=== PATIENT | male | born 1995 | race Caucasian/White ===

== ENCOUNTER 2017-05-17 16:52 | Emergency (ER) | payer OTHER, MEDICAID ==
[~2017-05-17] VITALS: Ht 165.1 cm; Wt 93.9 kg
[~2017-05-17 16:52] MED LIST: ADVAIR 100-501 EACH INH; FLONASE 0.05%50 MCG NASAL; INTUNIV2 MG PO; LETROZOLE2.5 MG PO; MEDROLDOSEPACK PO; OXCARBAZEPINE600 MG PO; PROMETH-CODEIN 65 ML PO; VENTOLIN HFA 1818 GM INH; ZPAK PO
[2017-05-17 17:32] LABS: URINE BILIRUBIN NEGATIVE (Negative); URINE BLOOD NEGATIVE (Negative); URINE CLARITY CLEAR; URINE COLOR YELLOW; URINE GLUCOSE-RANDOM NEGATIVE (Negative); URINE KETONES NEGATIVE (Negative); URINE LEUKOCYTES NEGATIVE (Negative); URINE NITRITE NEGATIVE (Negative); URINE PROTEIN NEGATIVE (Negative)
[2017-05-17 17:41] LABS: AMP/METHAMP Negative (Negative); BARBITURATES Negative (Negative); BENZODIAZEPINES Negative (Negative); COCAINE Negative (Negative); METHADONE Negative (Negative); OPIATES Negative (Negative); PCP Negative (Negative); THC POSITIVE (Negative)
[2017-05-17] MEDS ORDERED: ROBAXIN 750 MG750 M1 PO (17:52)
[2017-05-17] MEDS ORDERED: TORADOL 10 MG T10 MG PO (17:52)
[2017-05-17] MEDS ORDERED: TYLENOL EXTRA500 MG PO (17:52)
[2017-05-17 18:26] VITALS: BP 135/87
== END 2017-05-17 18:27 | disposition home or self-care (01) ==
LOC: M.ERS 16:52
PROVIDERS: Physician Assistant
DX: M54.6 Pain in thoracic spine (principal); I48.91 Unspecified atrial fibrillation

== ENCOUNTER → 2017-10-17 | Outpatient (CLI) | payer OTHER ==
[~2017-10-17] MED LIST changes: +CHOLESTEROL PO; +ROBAXIN 750 MG750 M1 PO; +TORADOL 10 MG T10 MG PO; +TYLENOL EXTRA500 MG PO; +XARELTO20 MG PO
== END ==
LOC: M.ULTRA 16:00
DX: I82.4Z1 Acute embolism and thrombosis of unspecified deep veins of right distal lower extremity (principal)

== ENCOUNTER → 2017-11-21 | Outpatient (CLI) | payer OTHER | LOC: M.ULTRA 13:55 | DX: D68.61 Antiphospholipid syndrome (principal); M79.661 Pain in right lower leg ==

== ENCOUNTER 2018-01-27 09:23 | Emergency (ER) | payer OTHER ==
[~2018-01-27] VITALS: Ht 165.1 cm; Wt 96.4 kg
[~2018-01-27 09:23] MED LIST changes: -CHOLESTEROL PO; -XARELTO20 MG PO
[2018-01-27] MEDS ORDERED: XARELTO20 MG PO (09:30)
[2018-01-27] MEDS ORDERED: CHOLESTEROL PO (09:31)
[2018-01-27 09:54] LABS: ABSOLUTE BASOPHILS 0.1 thou/uL (0.0-0.2); ABSOLUTE EOSINOPHILS 0.4 thou/uL (0.0-0.7); ABSOLUTE LYMPHOCYTES 1.7 thou/uL (0.8-5.3); ABSOLUTE MONOCYTES 0.7 thou/uL (0.0-1.2); ABSOLUTE NEUTROPHILS 4.3 thou/uL (1.6-8.1); BASOPHILS 0.8 %; EOSINOPHILS 5.2 %; HEMATOCRIT 46.4 % (42.0-52.0); HEMOGLOBIN 15.8 gm/dL (14.0-18.0); LYMPHOCYTES 23.5 %; MCH 29.1 pg (26.0-34.0); MCV 85.7 fL (80.0-100.0); MPV 7.2 fl. (7.2-11.1); NUCLEATED RBCS 0 /100WBC; PLATELET COUNT* 228 thou/uL (150-400); POLYS 60.5 %; RBC 5.41 mil/uL (4.50-6.00); RDW-CV 12.9 % (10.5-14.5); WBC 7.1 thou/uL (4.0-11.0)
[2018-01-27 09:55] LABS: CALCIUM 8.7 mg/dL (8.5-10.1); CREATININE 1.1 mg/dL (0.6-1.3); POTASSIUM 3.6 mmol/L (3.5-5.1)
[2018-01-27 09:57] LABS: APTT 42.9 Seconds (25.0-31.3); INR 1.6; PROTIME 16.8 Seconds (9.20-11.50)
[2018-01-27 10:00] LABS: ALBUMIN 4.2 g/dL (3.4-5.0)
[2018-01-27 10:06] LABS: URINE BILIRUBIN NEGATIVE (Negative); URINE BLOOD NEGATIVE (Negative); URINE CLARITY CLEAR; URINE COLOR YELLOW; URINE GLUCOSE-RANDOM NEGATIVE (Negative); URINE KETONES TRACE (Negative); URINE LEUKOCYTES-REFLEX TRACE (Negative); URINE NITRITE-REFLEX NEGATIVE (Negative); URINE PROTEIN NEGATIVE (Negative); URINE SPECIFIC GRAVITY 1.025 (1.005-1.030); URINE UROBILINOGEN 0.2 E.U./dl (0.2-1.0)
[2018-01-27 10:14] LABS: AMP/METHAMP POSITIVE (Negative); BARBITURATES Negative (Negative); BENZODIAZEPINES Negative (Negative); COCAINE Negative (Negative); METHADONE Negative (Negative); OPIATES Negative (Negative); PCP Negative (Negative); THC Negative (Negative)
[2018-01-27 10:18] LABS: ACETAMINOPHEN < 2 ug/mL (10-30); ALCOHOL < 10 mg/dL (<10); SALICYLATE < 2.8 mg/dL (2.8-20.0)
[2018-01-27 10:29] LABS: BE 0 mmol/L (-2 to +3); HCO3 23.8 mmol/L (22.0-26.0); PCO2 36.2 mmHg (35.0-45.0); PO2 95.5 mmHg (75.0-100.0); pH 7.435 (7.340-7.450)
--- NOTE | 2018-01-27 18:00 | EKG ---
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
[2018-01-28 10:49] LABS: SQUAMOUS 4-10 Moderate /LPF (0-3)
[2018-01-28 10:50] LABS: URINE RBC 0-2 Rare /HPF (0-2); URINE WBC-REFLEX 0-5 Rare /HPF (0-5)
[2018-01-28 10:51] LABS: CASTS None Seen /LPF (None Seen); MUCUS 0-3 Light strn/LPF (None Seen)
[2018-01-28 10:52] LABS: CRYSTALS None Seen /LPF (None Seen)
[2018-01-29 13:35] VITALS: BP 166/75
== END 2018-01-29 13:38 | disposition home or self-care (01) ==
LOC: M.ERS 09:23
PROVIDERS: Emergency Medicine
DX: T39.312A Poisoning by propionic acid derivatives, intentional self-harm, initial encounter (principal); T45.512A Poisoning by anticoagulants, intentional self-harm, initial encounter; T39.012A Poisoning by aspirin, intentional self-harm, initial encounter; F32.9 Major depressive disorder, single episode, unspecified; I48.91 Unspecified atrial fibrillation; Y92.89 Other specified places as the place of occurrence of the external cause

== ENCOUNTER 2018-05-01 16:56 | Emergency (ER) | payer OTHER ==
[~2018-05-01] VITALS: Ht 160 cm; Wt 104.3 kg
[~2018-05-01 16:56] MED LIST changes: +CHOLESTEROL PO; +XARELTO20 MG PO
[2018-05-01 17:30] LABS: ABSOLUTE BASOPHILS 0.1 thou/uL (0.0-0.2); ABSOLUTE LYMPHOCYTES 2.3 thou/uL (0.8-5.3); ABSOLUTE MONOCYTES 0.6 thou/uL (0.0-1.2); ABSOLUTE NEUTROPHILS 8.3 thou/uL (1.6-8.1); BASOPHILS 0.6 %; EOSINOPHILS 0.3 %; HEMATOCRIT 49.8 % (42.0-52.0); HEMOGLOBIN 16.7 gm/dL (14.0-18.0); LYMPHOCYTES 20.2 %; MCH 28.6 pg (26.0-34.0); MCHC 33.5 g/dL (28.0-37.0); MCV 85.4 fL (80.0-100.0); MONOCYTES 5.6 %; MPV 7.1 fl. (7.2-11.1); NUCLEATED RBCS 0 /100WBC; PLATELET COUNT* 286 thou/uL (150-400); POLYS 73.3 %; RBC 5.83 mil/uL (4.50-6.00); WBC 11.4 thou/uL (4.0-11.0)
[2018-05-01 17:39] LABS: ANION GAP 9 mmol/L (7-16); BUN 14 mg/dL (7-18); CALCIUM 9.7 mg/dL (8.5-10.1); CHLORIDE 104 mmol/L (98-107); CO2 28 mmol/L (21-32); GLUCOSE 109 mg/dL (70-99); POTASSIUM 3.8 mmol/L (3.5-5.1); SODIUM 141 mmol/L (136-145)
[2018-05-01 17:51] LABS: ALBUMIN 4.3 g/dL (3.4-5.0); ALKALINE PHOSPHATASE 61 U/L (46-116); LIPASE 131 U/L (73-393); NT-PRO BRAIN NAT PEPTIDE 8 pg/mL (<300); SGOT 29 U/L (15-37); SGPT 64 U/L (30-65); TOTAL BILIRUBIN 0.6 mg/dL (<0.1-1.0); TOTAL PROTEIN 7.8 g/dL (6.4-8.2); TROPONIN-I LEVEL <0.06 ng/mL (<0.06)
[2018-05-01 18:10] LABS: URINE BILIRUBIN NEGATIVE (Negative); URINE BLOOD NEGATIVE (Negative); URINE CLARITY CLEAR; URINE COLOR YELLOW; URINE GLUCOSE-RANDOM NEGATIVE (Negative); URINE KETONES NEGATIVE (Negative); URINE LEUKOCYTES-REFLEX NEGATIVE (Negative); URINE NITRITE-REFLEX NEGATIVE (Negative); URINE PROTEIN NEGATIVE (Negative); URINE SPECIFIC GRAVITY 1.025 (1.005-1.030)
[2018-05-01 18:26] LABS: AMP/METHAMP Negative (Negative); BARBITURATES Negative (Negative); BENZODIAZEPINES Negative (Negative); COCAINE Negative (Negative); METHADONE Negative (Negative); OPIATES Negative (Negative); PCP Negative (Negative); THC POSITIVE (Negative)
[2018-05-01] MEDS ORDERED: NABUMETONE 750750 M1 PO (19:09)
[2018-05-01 19:25] VITALS: BP 109/67
--- NOTE | 2018-05-02 14:55 | EKG ---
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
== END 2018-05-01 19:25 | disposition home or self-care (01) ==
LOC: M.ERS 16:56
PROVIDERS: Nurse Practitioner Family
DX: R07.89 Other chest pain (principal); R06.00 Dyspnea, unspecified; I48.91 Unspecified atrial fibrillation; F17.210 Nicotine dependence, cigarettes, uncomplicated; Z86.718 Personal history of other venous thrombosis and embolism; Z79.899 Other long term (current) drug therapy

== ENCOUNTER 2019-10-18 15:08 | Emergency (ER) | payer OTHER ==
[~2019-10-18] VITALS: Ht 165.1 cm; Wt 93.0 kg
[~2019-10-18 15:08] MED LIST changes: +NABUMETONE 750750 M1 PO
[2019-10-18] MEDS ORDERED: ABILIFY 5 MG TAB5 M1 PO (15:22)
[2019-10-18 15:44] LABS: HEMATOCRIT 43.5 % (42.0-52.0); HEMOGLOBIN 15.1 gm/dL (14.0-18.0); MCH 29.6 pg (26.0-34.0); MCHC 34.8 g/dL (28.0-37.0); MCV 85.1 fL (80.0-100.0); MPV 7.2 fl. (7.2-11.1); RBC 5.11 mil/uL (4.50-6.00); RDW-CV 13.1 % (10.5-14.5); WBC 6.4 thou/uL (4.0-11.0)
[2019-10-18 15:52] LABS: CALCIUM 8.4 mg/dL (8.5-10.1); CREATININE 1.1 mg/dL (0.6-1.3); POTASSIUM 3.4 mmol/L (3.5-5.1)
[2019-10-18 15:55] LABS: URINE BILIRUBIN NEGATIVE (Negative); URINE BLOOD NEGATIVE (Negative); URINE CLARITY CLEAR; URINE COLOR YELLOW; URINE GLUCOSE-RANDOM NEGATIVE (Negative); URINE KETONES TRACE (Negative); URINE LEUKOCYTES NEGATIVE (Negative); URINE NITRITE NEGATIVE (Negative); URINE PROTEIN NEGATIVE (Negative); URINE UROBILINOGEN 0.2 E.U./dl (0.2-1.0)
[2019-10-18 16:02] LABS: TOTAL BILIRUBIN 0.3 mg/dL (<0.1-1.0); TOTAL PROTEIN 7.3 g/dL (6.4-8.2)
[2019-10-18 16:04] LABS: AMP/METHAMP Negative (Negative); BARBITURATES Negative (Negative); BENZODIAZEPINES Negative (Negative); COCAINE Negative (Negative); METHADONE Negative (Negative); OPIATES Negative (Negative); PCP Negative (Negative); THC POSITIVE (Negative)
[2019-10-18 16:04] LABS: SALICYLATE < 2.8 mg/dL (2.8-20.0)
[2019-10-18 16:06] LABS: ACETAMINOPHEN < 2 ug/mL (10-30)
[2019-10-18 16:07] LABS: ALCOHOL < 10 mg/dL (<10)
--- NOTE | 2019-10-19 15:44 | EKG ---
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[facility] : 1995 Requested By: Sloane Loredo Order Number: [id number] MD: Curt Enriquez Measurements Intervals [place] Rate: 87 P: 71 MN: 131 QRS: 43 QRSD: 102 T: 24 QT: 357 QTc: 430 Interpretive Statements Sinus rhythm Baseline wander in lead(s) V1 Compared to ECG 05/01/2018 17:12:35 Sinus tachycardia no longer present Electronically Signed On 10-19-2019 15:41:59 CDT by Curt Enriquez [email or web address] <ELECTRONICALLY SIGNED> By: Curt Enriquez MD, [facility] 10/19/19 1541 1539 1539 Curt Enriquez MD, [facility] /EPI
[2019-10-20 10:15] VITALS: BP 118/62
== END 2019-10-20 10:17 | disposition still patient (30) ==
LOC: M.ERS 15:08
PROVIDERS: Personal Emergency Response Attendant
DX: Z03.818 Encounter for observation for suspected exposure to other biological agents ruled out (principal); T39.311A Poisoning by propionic acid derivatives, accidental (unintentional), initial encounter; T43.221A Poisoning by selective serotonin reuptake inhibitors, accidental (unintentional), initial encounter; M54.5 Low back pain; I48.91 Unspecified atrial fibrillation; Y92.89 Other specified places as the place of occurrence of the external cause